=== PATIENT | male | born 1945 ===

== ENCOUNTER → 2018-06-19 | Outpatient (CLI) | payer MEDICARE ==
[2018-06-19 14:23] LABS: BILIRUBIN,URINE NEGATIVE (NEG); CLARITY,URINE CLEAR; COLOR,URINE YELLOW; NITRITE,URINE NEGATIVE (NEG); PROTEIN,URINE NEGATIVE (NEG-TRACE); UROBILINOGEN,URINE 0.2 mg/dL (0.2 mg/dL)
[2018-06-19 14:31] LABS: BACTERIA,URINE 0 /HPF (0-FEW); HYALINE CASTS, URINE MODERATE /HPF; SQUAMOUS EPITHELIAL CELL,UR FEW /LPF
== END | disposition home or self-care (01) ==
LOC: SPEC 13:17
PROVIDERS: ATTEND Internal Medicine
DX: N36.0 Urethral fistula (principal)
CPT/HCPCS: 81001